=== PATIENT | male | born 1980 | race Caucasian/White ===

== ENCOUNTER 2017-07-10 16:27 | Emergency (ER) | payer BC ==
[2017-07-10 17:32] VITALS: BP 113/78
--- NOTE | 2017-07-10 18:29 | UC ---
Ear Complaint HPI - HPI Summary HPI Summary: c/o right ear discomfort and sensation of pressure and 'being underwater" for past 10 days. He has history of cerumen impaction and he has tried many different modalities to extract it. Denies fever or pain, denies d/c. States that for the past 10 days he his nose has been constantly running when he goes outdoors into the cold. Denies nasal itching, seasonal allergies or cough/ wheezing - History of Current Complaint Chief Complaint: UCEar Stated Complaint: EAR PAIN Time Seen by Provider: 07/10/17 17:49 Hx Obtained From: Patient Onset/Duration: Gradual Onset, Lasting Days Severity Initially: Moderate Severity Currently: Moderate Pain Intensity: 2 Aggravating Factors: Cold Alleviating Factors: Nothing Associated Signs/Symptoms: Positive: Hearing Loss - Allergies/Home Medications Allergies/Adverse Reactions: Allergies Allergy/AdvReac Type Severity Reaction Status Date / Time MS Aspirin [Aspirin] Allergy Unknown Verified 07/10/17 17:32 Reaction Details MS Penicillins [Penicillins] Allergy Unknown Verified 07/10/17 17:32 Reaction Details PMH/Surg Hx/FS Hx/Imm Hx Previously Healthy: Yes - Surgical History Surgical History: None - Family History Known Family History: Positive: None - Social History Alcohol Use: None Substance Use Type: None Substance Use Comment - Amount & Last Used: 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 Smoking Status (MU): Heavy Every Day Tobacco Smoker Type: Cigarettes Amount Used/How Often: 1 pack a day Length of Time of Smoking/Using Tobacco: 16+ years Have You Smoked in the Last Year: Yes Review of Systems Constitutional: Negative ENT: Nasal Discharge All Other Systems Reviewed And Are Negative: Yes Physical Exam Triage Information Reviewed: Yes Appearance: Well-Appearing, No Pain Distress Vital Signs: Initial Vital Signs Temp 97.6 F 07/10/17 17:30 Pulse 59 07/10/17 17:30 Resp 18 07/10/17 17:30 BP 113/78 07/10/17 17:30 Pulse Ox 100 07/10/17 17:30 Vital Signs Reviewed: Yes Eyes: Positive: Conjunctiva Clear ENT: Positive: Pharynx normal, Nasal drainage, TMs normal, Uvula midline Dental Exam: Normal Neck exam: Normal Respiratory Exam: Normal Cardiovascular Exam: Normal Ear Complaint Course/Dx - Course Course Of Treatment: start nasal spray one hour before exposure to cold. Information given about eustachian tube, middle ear effusion, vasomotor rhinitis. - Differential Dx/Diagnosis Provider Diagnoses: vasomotor rhinitis. Middle ear effusion. Eustachian tube dysfunction Discharge - Discharge Plan Condition: Stable Disposition: HOME Prescriptions: Ipratropium Moon 30 ml NS TID #1 spray Patient Education Materials: Postnasal Drip (DC) Referrals: No Primary Care Phys,NOPCP [Primary Care Provider] - [facility] [place] [facility]ERR[facility] [Outside]
== END 2017-07-10 18:26 | disposition home or self-care (01) ==
LOC: UCEAST 16:27
DX: J30.0 Vasomotor rhinitis (principal); H65.91 Unspecified nonsuppurative otitis media, right ear; H72.91 Unspecified perforation of tympanic membrane, right ear; Z88.6 Allergy status to analgesic agent; Z88.0 Allergy status to penicillin; F17.210 Nicotine dependence, cigarettes, uncomplicated
CPT/HCPCS: 99212; G0463

== ENCOUNTER 2017-10-13 15:44 | Emergency (ER) | payer BC ==
[2017-10-13 16:16] VITALS: BP 113/74
--- NOTE | 2017-10-13 16:31 | UC ---
Psychiatric Complaint HPI - HPI Summary HPI Summary: 36 yo male request refill of his lithium his provider is out of [facility] 10/22 He is bipolar and has been on 600mg bid for years has been out of meds for 2 days - History Of Current Complaint Chief Complaint: UCMedRefill Stated Complaint: NEEDS A REFILL Time Seen by Provider: 10/13/17 16:15 Hx Obtained From: Patient Onset/Duration: Other - NA Severity Currently: None Aggravating Factor(s): Nothing Alleviating Factor(s): Nothing Associated Signs And Symptoms: Negative Related History: Positive For: Prior Psychiatric Issues, Admissions Related To Substance Abuse - Allergies/Home Medications Allergies/Adverse Reactions: Allergies Allergy/AdvReac Type Severity Reaction Status Date / Time aspirin Allergy Unknown Unknown Verified 10/13/17 16:08 Reaction Details Penicillins Allergy Unknown Unknown Verified 10/13/17 16:08 Reaction Details Home Medications: Home Medications [place] Carbonate TAB* 600 mg PO DAILY 10/13/17 [History Confirmed 10/13/17] PMH/Surg Hx/FS Hx/Imm Hx Previously Healthy: Yes Psychological History: Bipolar Disorder - Surgical History Surgical History: None - Family History Known Family History: Positive: Hypertension - Social History Alcohol Use: None Substance Use Type: None Substance Use Comment - Amount & Last Used: 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 Smoking Status (MU): Heavy Every Day Tobacco Smoker Type: Cigarettes Amount Used/How Often: 1 pack a day Length of Time of Smoking/Using Tobacco: 16+ years Have You Smoked in the Last Year: Yes Review of Systems Constitutional: Negative Skin: Negative Eyes: Negative ENT: Negative Respiratory: Negative Cardiovascular: Negative Gastrointestinal: Negative Genitourinary: Negative Motor: Negative Neurovascular: Negative Musculoskeletal: Negative Neurological: Negative Psychological: Negative Is Patient Immunocompromised?: No All Other Systems Reviewed And Are Negative: Yes Physical Exam Triage Information Reviewed: Yes Appearance: Well-Appearing, No Pain Distress, Well-Nourished Vital Signs: Initial Vital Signs Temp 97.7 F 10/13/17 16:10 Pulse 57 10/13/17 16:10 Resp 17 10/13/17 16:10 BP 113/74 10/13/17 16:10 Pulse Ox 100 10/13/17 16:10 Vital Signs Reviewed: Yes Eyes: Positive: Conjunctiva Clear ENT: Positive: Hearing grossly normal. Negative: Nasal congestion, Nasal drainage, Trismus, Muffled voice, Hoarse voice Neck: Positive: Supple, Nontender, No Lymphadenopathy Respiratory: Positive: Lungs clear, Normal breath sounds, No respiratory distress, No accessory muscle use Cardiovascular: Positive: RRR, No Murmur Musculoskeletal: Positive: ROM Intact, No Edema Neurological: Positive: Alert, Muscle Tone Normal Psychological Exam: Normal - no SI/HI Skin Exam: Normal Psych Complaint Course/Dx - Differential Dx/Diagnosis Provider Diagnoses: bipolar disorder. med refill Discharge - Sign-Out/Discharge Documenting (check all that apply): Discharge/Admit/Transfer - Discharge Plan Condition: Stable Disposition: HOME Prescriptions: [place] Carbonate [[place] Carbonate 600 mg cap] 600 mg PO BID #20 capsule Referrals: No Primary Care Phys,NOPCP [Primary Care Provider] - Additional Instructions: med refill see your provider when able - Billing Disposition and Condition Condition: STABLE Disposition: HOME
== END 2017-10-13 16:29 | disposition home or self-care (01) ==
LOC: UCCORT 15:44
DX: F31.9 Bipolar disorder, unspecified (principal); F17.210 Nicotine dependence, cigarettes, uncomplicated; Z88.0 Allergy status to penicillin; Z88.6 Allergy status to analgesic agent
CPT/HCPCS: 99212; G0463

== ENCOUNTER 2017-12-07 19:32 | Emergency (ER) | payer BC ==
[2017-12-07 19:41] VITALS: BP 129/61
--- NOTE | 2017-12-07 20:20 | UC ---
Ernestina Swan Jacob, scribed for Jenae Keys MD on 12/07/17 at 1958 . General HPI - HPI Summary HPI Summary: Pt is a 37 y/o M w/ c/o blood from left ear. He notes bleeding started in the morning and he woke up with blood present on his pillow. He had three episodes of bleeding throughout the day. After the first episode in the morning, he began to bleed again at noon. The final episode occurred while Pt was running at the gym an hour ago. He reports that the amount of blood produced was enough to fill the cup of his headphones. Pt denies experiencing any pain today or yesterday. He additionally denies dental pain, sinus pain, and any vision changes. However, he is legally blind in one eye. He reports chronic HAs but notes no difference from previous HAs. No anticoagulants. He does not use Q- tips and states he gets his ears cleaned by a doctor occasionally. Pts medications reviewed this visit - History of Current Complaint Chief Complaint: UCEar Stated Complaint: BLOOD COMING OUT OF LEFT EAR Time Seen by Provider: 12/07/17 19:39 Hx Obtained From: Patient Onset/Duration: Lasting Hours - onset this morning Timing: Intermittent Episodes Lasting: - 3 separate episodes Current Severity: None - denies pain Pain Intensity: 0 Associated Signs & Symptoms: Positive: Headache - has chronic HAs, but notes no difference from previous HAs, Other - NEGATIVE: dental, ear, sinus pain, vision changes - Allergy/Home Medications Allergies/Adverse Reactions: Allergies Allergy/AdvReac Type Severity Reaction Status Date / Time aspirin Allergy Unknown Unknown Verified 10/13/17 16:08 Reaction Details Penicillins Allergy Unknown Unknown Verified 10/13/17 16:08 Reaction Details PMH/Surg Hx/FS Hx/Imm Hx Previously Healthy: Yes Respiratory History: Pneumonia Psychological History: Bipolar Disorder - Surgical History Surgical History: None - Family History Known Family History: Positive: Hypertension - mother, Diabetes - mother - Social History Occupation: Employed Full-time Lives: With Family Alcohol Use: None Substance Use Type: None Substance Use Comment - Amount & Last Used: 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 Smoking Status (MU): Heavy Every Day Tobacco Smoker Type: Cigarettes Amount Used/How Often: 1 pack a day Length of Time of Smoking/Using Tobacco: 16+ years Have You Smoked in the Last Year: Yes Review of Systems Constitutional: Negative ENT: Other - POSITIVE: left ear bleeding NEGATIVE: sinus pain, dental pain, ear pain Neurological: Other - POSITIVE: HAs which have been chronic and unchanged after ear bleeding onset NEGATIVE: vision changes All Other Systems Reviewed And Are Negative: Yes Physical Exam - Summary Physical Exam Summary: Vital Signs Reviewed: Yes A+Ox3, no distress Eyes: Conjunctiva Clear, HUSSAIN, EOM intact and full ENT: Hearing grossly normal TM x2 clear visualized, intact, normal appearance Pt with cerumen left canal -e asily removed with currette. Pt with small, scabbed lesion to left outer ear just above tragus. cleaned dried blood from outer ear, pinna - scab remained. Suspect origin of blood. No blood in nares. No blood oropharyx neck: supple Respiratory: Positive: No respiratory distress, No accessory muscle use Cardiovascular: skin color reflect adequate perfusion Musculoskeletal Exam: GEORGE x 4 without difficulty Neurological: Positive: Alert, ambulatory without difficulty Psychological: Positive: Normal Response To Family Skin: Positive: no rash, no ecchymosis abraison left ear Triage Information Reviewed: Yes Vital Signs: Initial Vital Signs Temp 97.7 F 12/07/17 19:35 Pulse 62 12/07/17 19:35 Resp 16 12/07/17 19:35 BP 129/61 12/07/17 19:35 Pulse Ox 100 12/07/17 19:35 Eye Exam: Normal ENT Exam: Normal Dental Exam: Normal Neck exam: Normal Neck: Positive: 1 Respiratory Exam: Normal Cardiovascular Exam: Normal Abdominal Exam: Normal Musculoskeletal Exam: Normal Neurological Exam: Normal Psychological Exam: Normal Skin Exam: Normal Course/Dx - Course Course Of Treatment: Patient presents with 3 episodes of blood appearing to come from his left ear. Upon exam and cleaning blood and scabs, patient with small abrasion left ear. Suspect this with origin of blood. Catheterization of both canals as well as TMs after remove cerumen fourth curette. Clean dry intact and within normal limits. Patient comfortable and agreeable with plan. Recommend patient use antibiotic ointment to keep moist and prevent scab from peeling. Patient comfortable and agreeable with plan. I Randall patient Cisco to look at wound. Patient states understanding and agreement - Differential Dx - Multi-Symptom Provider Diagnoses: abraison Discharge - Sign-Out/Discharge Documenting (check all that apply): Discharge/Admit/Transfer - Discharge Plan Condition: Stable Disposition: HOME Patient Education Materials: Abrasion (ED) Referrals: No Primary Care Phys,NOPCP [Primary Care Provider] - Additional Instructions: - you have a small, scabbed wound on the outside if your ear. The doctor that examined you thinks this is the cause of the blood when you were exercises and on your pillow. You ear canal and ear drum looks normal and healthy. - It is recommended you cover this wound with a thin layer of antibiotic ointment (neosporin, polysporin) 2-3 times a day - it is starts to bleed, hold steady pressure to this area for 10 minutes. Contact your doctor, return here or go to the emergency department with any questions or concerns - Billing Disposition and Condition Condition: STABLE Disposition: Home The documentation as recorded by the Ernestina albert Jacob accurately reflects the service I personally performed and the decisions made by me, Jenae Keys MD.
== END 2017-12-07 20:15 | disposition home or self-care (01) ==
LOC: UCEAST 19:32
DX: S00.412A Abrasion of left ear, initial encounter (principal); F31.9 Bipolar disorder, unspecified; H54.10 Blindness, one eye, low vision other eye, unspecified eyes; H61.22 Impacted cerumen, left ear; R51 Headache; F17.210 Nicotine dependence, cigarettes, uncomplicated; Z88.0 Allergy status to penicillin; Z88.6 Allergy status to analgesic agent; X58.XXXA Exposure to other specified factors, initial encounter; Y92.9 Unspecified place or not applicable
CPT/HCPCS: 99211; G0463

== ENCOUNTER 2018-05-07 18:03 | Emergency (ER) | payer BC ==
[2018-05-07 18:15] VITALS: BP 136/84
--- NOTE | 2018-05-07 18:31 | UC ---
Respiratory Complaint HPI - HPI Summary HPI Summary: 37 year old male with no significant pmhx here with complaint of cough. Reports cough over over 10 days, productive with brown phlegm. He denies fever, chills, cp or sob. Also reports right sided decreased hearing for the past few days. He tried to clean the wax with OTC drops but no alleviation in his symptoms. Patient active smoker. - History of Current Complaint Chief Complaint: UCRespiratory Stated Complaint: URI Time Seen by Provider: 05/07/18 18:25 Timing: Constant Severity Currently: Mild Pain Intensity: 3 Character: Cough: Productive Aggravating Factors: Nothing Alleviating Factors: Nothing Associated Signs And Symptoms: Negative: Fever, Chills, Pleuritic Chest Pain, Hemoptysis, URI, Nasal Congestion, Hoarseness - Allergies/Home Medications Allergies/Adverse Reactions: Allergies Allergy/AdvReac Type Severity Reaction Status Date / Time aspirin Allergy Unknown Unknown Verified 05/07/18 18:15 Reaction Details Penicillins Allergy Unknown Unknown Verified 05/07/18 18:15 Reaction Details PMH/Surg Hx/FS Hx/Imm Hx - Surgical History Surgical History: None - Family History Known Family History: Positive: Hypertension - mother, Diabetes - mother - Social History Alcohol Use: None Alcohol Amount: IN RECOVERY SINCE 2011 Substance Use Type: None Substance Use Comment - Amount & Last Used: IN RECOVERY SINCE 2011 Smoking Status (MU): Current Every Day Smoker Type: Cigarettes Amount Used/How Often: 1/2 PPD Length of Time of Smoking/Using Tobacco: 16+ years Have You Smoked in the Last Year: Yes Review of Systems All Other Systems Reviewed And Are Negative: Yes Constitutional: Positive: Negative Skin: Positive: Negative Eyes: Positive: Negative ENT: Positive: Negative Respiratory: Positive: Cough Cardiovascular: Positive: Negative Gastrointestinal: Positive: Negative Genitourinary: Positive: Negative Motor: Positive: Negative Neurovascular: Positive: Negative Musculoskeletal: Positive: Negative Neurological: Positive: Negative Psychological: Positive: Negative Is Patient Immunocompromised?: Yes Physical Exam Triage Information Reviewed: Yes Vital Signs: Initial Vital Signs Temp 36.4 C 05/07/18 18:11 Pulse 68 05/07/18 18:11 Resp 16 05/07/18 18:11 BP 136/84 05/07/18 18:11 Pulse Ox 100 05/07/18 18:11 Eye Exam: Normal ENT: Positive: Nasal congestion, Nasal drainage, Uvula midline, Other - bilateral ear cerumen impaction. Negative: Tonsillar swelling, Tonsillar exudate, Trismus, Muffled voice, Sinus tenderness Respiratory Exam: Normal Cardiovascular Exam: Normal Abdominal Exam: Normal Musculoskeletal Exam: Normal Neurological Exam: Normal Skin Exam: Normal UC Diagnostic Evaluation - Laboratory O2 Sat by Pulse Oximetry: 100 Respiratory Course/Dx - Course Course Of Treatment: Cerumen impaction: bilateral irrigation. Cough: Bronchitis , instructed patient to stop smoking. Tony sent to pharmacy - Differential Dx/Diagnosis Differential Diagnosis/HQI/PQRI: Bronchitis, Sinusitis Provider Diagnosis: Bronchitis, Cerumen impaction Discharge - Sign-Out/Discharge Documenting (check all that apply): Patient Departure All imaging exams completed and their final reports reviewed: Yes - Discharge Plan Condition: Good Disposition: HOME Prescriptions: Azithromycin TAB* [Zithromax TAB (Z-FRANKI) 250 mg #6 tabs] 2 tab PO .TODAY, THEN 1 DAILY #1 franki Patient Education Materials: Acute Bronchitis (ED), How to Stop Smoking (ED) Referrals: No Primary Care Phys,NOPCP [Primary Care Provider] - Additional Instructions: Stop smoking to improve your symptoms - Billing Disposition and Condition Condition: GOOD Disposition: Home
== END 2018-05-07 19:15 | disposition home or self-care (01) ==
LOC: UCEAST 18:03
DX: J40 Bronchitis, not specified as acute or chronic (principal); H61.23 Impacted cerumen, bilateral; Z88.6 Allergy status to analgesic agent; Z88.0 Allergy status to penicillin; F17.210 Nicotine dependence, cigarettes, uncomplicated
CPT/HCPCS: 69210; 99212; G0463

== ENCOUNTER 2019-08-13 08:58 | Emergency (ER) | payer BC ==
[2019-08-13 09:26] VITALS: BP 113/60
--- NOTE | 2019-08-13 09:47 | UC ---
Skin Complaint HPI - HPI Summary HPI Summary: Patient is 38 year old gentleman, who present today to the urgent care with right hand bug bite and pain for past 1 week. Reports questionable bug bite on R 3rd digit that happened about 1 week ago. Now has swelling and redness moving up the hand that started 2-3 days ago. States had a fever yesterday , MAXIMUM TEMPERATURE at 101F. Took Tylenol. He works in a warehouse. Denies any chest pain or shortness of breath . Denies any abdominal pain , nausea or vomiting , diarrhea or constipation. - History of Current Complaint Chief Complaint: UCSkin Time Seen by Provider: 08/13/19 09:29 Stated Complaint: R HAND COMPLAINT Hx Obtained From: Patient Pain Intensity: 4 - Allergy/Home Medications Allergies/Adverse Reactions: Allergies Allergy/AdvReac Type Severity Reaction Status Date / Time aspirin Allergy Unknown Unknown Verified 08/13/19 09:20 Reaction Details Penicillins Allergy Unknown Unknown Verified 08/13/19 09:20 Reaction Details Home Medications: Home Medications Acetaminophen [Acetaminophen Extra Strength] 1,000 mg PO ONCE 08/13/19 [History Confirmed 08/13/19] Sulfamethox/Trimethoprim DS* [Bactrim DS 800/160 TAB*] 1 tab PO BID 10 Days #20 tab 08/13/19 [Rx] PMH/Surg Hx/FS Hx/Imm Hx - Additional Past Medical History Additional PMH: Past Medical History : Substance use disorder None Past Surgical History: No Past History of Procedure Family History : Negative for any dermatological problems. Social History : no alcohol, daily smoker, no drug use. Previously Healthy: Yes - Surgical History Surgical History: None - Family History Known Family History: Positive: Hypertension - mother, Diabetes - mother, Other - No dermatological disorder, Non-Contributory - Social History Alcohol Use: None Alcohol Amount: IN RECOVERY SINCE 2011 Substance Use Type: None Substance Use Comment - Amount & Last Used: IN RECOVERY SINCE 2011 Smoking Status (MU): Current Every Day Smoker Type: Cigarettes Amount Used/How Often: 1/2 PPD Length of Time of Smoking/Using Tobacco: 16+ years Have You Smoked in the Last Year: Yes Review of Systems All Other Systems Reviewed And Are Negative: Yes Constitutional: Positive: Fever Skin: Positive: Rash Eyes: Positive: Negative ENT: Positive: Negative Respiratory: Positive: Negative Cardiovascular: Positive: Negative Gastrointestinal: Positive: Negative Genitourinary: Positive: Negative Motor: Positive: Negative Neurovascular: Positive: Negative Musculoskeletal: Positive: Negative Neurological/Mental Status: Positive: Negative Psychological: Positive: Negative Is Patient Immunocompromised?: No Physical Exam - Summary Physical Exam Summary: Vital Signs Reviewed: Yes A+Ox3, no distress Eyes: Conjunctiva Clear ENT: Hearing grossly normal neck: supple Respiratory: Positive: No respiratory distress, No accessory muscle use Cardiovascular: skin color reflect adequate perfusion Musculoskeletal Exam: GEORGE x 4 without difficulty Neurological: Positive: Alert, ambulatory without difficulty Psychological: Positive: Normal Response To Family Skin: Right hand:: Circular measuring about 1 cm central eschar with surrounding fibrotic skin noted at the proximal phalanx of the third digit dorsally. Close to it is a small 2 mm sized erythematous nodule. Slightly distal and proximal to it is swelling and erythema extending all the way to the wrist on the dorsal aspect. There is swelling and tenderness to palpation of the third MCP joint along with limited and painful range of motion at that joint. Triage Information Reviewed: Yes Vital Signs: Initial Vital Signs Temp 97.7 F 08/13/19 09:21 Pulse 64 08/13/19 09:21 Resp 16 08/13/19 09:21 BP 113/60 08/13/19 09:21 Pulse Ox 99 08/13/19 09:21 Vital Signs Reviewed: Yes Course/Dx - Course Course Of Treatment: We discussed his symptoms which are consistent with bug bite related cellulitis. Given tenderness and limited range of motion and swelling at the third MCP joint possibility of septic joint cannot be completely ruled out given his history of fever yesterday. Patient needs additional testing, thus ER transfer advised and patient agrees. Report called to the ER provider() at [facility], advised provider of the history, physical examination, and duration of illness so far and the need for definitive management. He will go to the ER in a private car. - Diagnoses Provider Diagnosis: Cellulitis, Septic joint of right hand Discharge ED - Sign-Out/Discharge Documenting (check all that apply): Patient Departure All imaging exams completed and their final reports reviewed: No Studies - Discharge Plan Condition: Stable Disposition: HOME-RECOMMEND TO ED Prescriptions: Sulfamethox/Trimethoprim DS* [Bactrim DS 800/160 TAB*] 1 tab PO BID 10 Days #20 tab Patient Education Materials: Cellulitis (ED) Forms: *Work Release Referrals: Aidan Juárez MD [Medical Doctor] - 2 Days Garcia Ramirez MD [Medical Doctor] - 2 Days No Primary Care Phys,NOPCP [Primary Care Provider] - Additional Instructions: Please go to ER for further evaluation . Pain control with ibuprofen Work note provided. Return to Urgent care / ER if symptoms get worse. - Billing Disposition and Condition Condition: STABLE Disposition: Home-Recommend to ED
== END 2019-08-13 10:12 | disposition home health service (06) ==
LOC: UCEAST 08:58
DX: L03.011 Cellulitis of right finger (principal); M00.9 Pyogenic arthritis, unspecified; F17.210 Nicotine dependence, cigarettes, uncomplicated; Z88.0 Allergy status to penicillin; Z88.6 Allergy status to analgesic agent
CPT/HCPCS: 99212; G0463

== ENCOUNTER 2019-08-13 10:29 | Emergency (ER) | payer BC ==
[2019-08-13] MEDS ORDERED: cefTRIAXone(*) 2 GM in NS 0.9% 50 ML* 50 ML IVPB ONE (11:03)
--- NOTE | 2019-08-13 11:03 | ED ---
Upper Extremity Pain - HPI Summary HPI Summary: This patient is a 38 year old M presenting to ED with a chief complaint of worsening bug bite to the right middle finger since three days ago. 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 Patient states he developed redness and pain to the area which as spread with red streaking and pain up the right arm. Patient has not taken any antibiotics or medication. Patient was previously given a prescription for Bactrim but he never filled it. The patient rates the pain 4/10 in severity. Symptoms aggravated by nothing. Symptoms alleviated by nothing. Patient denies fever. Home Medications Medication Instructions Recorded Confirmed Type Acetaminophen [Acetaminophen Extra 1,000 mg PO ONCE 08/13/19 08/13/19 History Strength] Sulfamethox/Trimethoprim DS* 1 tab PO BID 10 Days #20 tab 08/13/19 Rx [Bactrim DS 800/160 TAB*] - History of Current Complaint Chief Complaint: EDRashSkinAbscess Stated Complaint: POSS CELLULITES PER PT Time Seen by Provider: 08/13/19 10:56 Hx Obtained From: Patient Mechanism Of Injury: Other - Bug bite Onset/Duration: Started Days Ago - 3 days, Still Present, Worse Since Timing: Constant Severity Initially: Moderate Severity Currently: Moderate Pain Location: Finger - Right middle Aggravating Factor(s): Nothing Alleviating Factor(s): Nothing Associated Signs & Symptoms: Positive: Redness. Negative: Fever - Allergies/Home Medications Allergies/Adverse Reactions: Allergies Allergy/AdvReac Type Severity Reaction Status Date / Time aspirin Allergy Unknown Unknown Verified 08/13/19 10:33 Reaction Details Penicillins Allergy Unknown Unknown Verified 08/13/19 10:33 Reaction Details Home Medications: Home Medications Acetaminophen [Acetaminophen Extra Strength] 1,000 mg PO ONCE 08/13/19 [History Confirmed 08/13/19] Sulfamethox/Trimethoprim DS* [Bactrim DS 800/160 TAB*] 1 tab PO BID 10 Days #20 tab 08/13/19 [Rx Confirmed 08/13/19] PMH/Surg Hx/FS Hx/Imm Hx Endocrine/Hematology History: Denies: Hx Diabetes Cardiovascular History: Denies: Hx Hypertension Sensory History: Denies: Hx Legally Blind, Hx Deafness Opthamlomology History: Denies: Hx Legally Blind EENT History: Denies: Hx Deafness - Surgical History Surgery Procedure, Year, and Place: Denies Infectious Disease History: No Infectious Disease History: Denies: Hx Clostridium Difficile, Hx Hepatitis, Hx Human Immunodeficiency Virus (HIV), Hx of Known/Suspected MRSA, Hx Shingles, Hx Tuberculosis, Hx Known/ Suspected VRE, Hx Known/Suspected VRSA, History Other Infectious Disease, Traveled Outside the [place] in Last 30 Days - Family History Known Family History: Positive: Hypertension - mother, Diabetes - mother, Other - No dermatological disorder - Social History Alcohol Use: None Alcohol Amount: IN RECOVERY SINCE 2011 Hx Substance Use: Yes Substance Use Type: Reports: Heroin Substance Use Comment - Amount & Last Used: IN RECOVERY SINCE 2011. Stopped suboxone 12/2018 Hx Tobacco Use: Yes Smoking Status (MU): Current Every Day Smoker Type: Cigarettes Amount Used/How Often: 1/2 PPD Length of Time of Smoking/Using Tobacco: 16+ years Have You Smoked in the Last Year: Yes Review of Systems Negative: Fever Skin: Other - Bug bite with redness to right middle finger, growing up the right arm with pain All Other Systems Reviewed And Are Negative: Yes Physical Exam - Summary Physical Exam Summary: VITAL SIGNS: Reviewed. GENERAL: Patient is a well-developed and nourished male who is lying comfortable in the stretcher. Patient is not in any acute respiratory distress. HEAD AND FACE: No signs of trauma. No ecchymosis, hematomas or skull depressions. No sinus tenderness. EYES: PERRLA, EOMI x 2, No injected conjunctiva, no nystagmus. EARS: Hearing grossly intact. Ear canals and tympanic membranes are within normal limits. MOUTH: Oropharynx within normal limits. NECK: Supple, trachea is midline, no adenopathy, no JVD, no carotid bruit, no c- spine tenderness, neck with full ROM. CHEST: Symmetric, no tenderness at palpation. LUNGS: Clear to auscultation bilaterally. No wheezing or crackles. CVS: Regular rate and rhythm, S1 and S2 present, no murmurs or gallops appreciated. ABDOMEN: Soft, non-tender. No signs of distention. No rebound, no guarding, and no masses palpated. Bowel sounds are normal. EXTREMITIES: Two necrotic spots to the dorsal aspect of the right middle finger with some erythema. NEURO: Alert and oriented x 3. No acute neurological deficits. Speech is normal and follows commands. SKIN: Dry and warm. Triage Information Reviewed: Yes Vital Signs On Initial Exam: Initial Vitals Temp Pulse Resp BP Pulse Ox 97.8 F 57 16 130/72 98 08/13/19 10:31 08/13/19 10:31 08/13/19 10:31 08/13/19 10:31 08/13/19 10:31 Vital Signs Reviewed: Yes Procedures - Sedation Patient Received Moderate/Deep Sedation with Procedure: No Diagnostics - Vital Signs Vital Signs Temp Pulse Resp BP Pulse Ox 08/13/19 10:31 97.8 F 57 16 130/72 98 - Laboratory Result Diagrams: 08/13/19 11:30 08/13/19 11:30 Lab Statement: Any lab studies that have been ordered have been reviewed, and results considered in the medical decision making process. - Radiology R hand XR Radiology Interpretation Completed By: Radiologist Summary of Radiographic Findings: GENERALIZED SOFT TISSUE SWELLING WITH NO OSSEOUS ABNORMALITY BY RADIOGRAPH. Dr. Jaramillo has reviewed this radiology report. Re-Evaluation - Re-Evaluation First Eval Re-Evaluation Time: 12:41 Comment: Discussed results and follow-up plan with patient. Patient will be discharged home with dx of cellulitus of hand. Patient understands and agrees with this plan. Course/Dx - Course Assessment/Plan: This patient is a 38 year old M presenting to ED with a chief complaint of worsening bug bite to the right middle finger since three days ago. 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 Patient states he developed redness and pain to the area which as spread with red streaking and pain up the right arm. Patient has not taken any antibiotics or medication. The patient rates the pain 4/10 in severity. Symptoms aggravated by nothing. Symptoms alleviated by nothing. Patient denies fever. In the ED course the patient was placed in a cardiac cath technologist, IV access was obtained, IV fluids started. He was given Rocephin for Cellulitis. Past medical records reviewed. Blood test w/o a significant abnormality except for hematocrit of 41, glucose 122, CRP is normal and white count is also normal. Dr. Marsh from orthopedics came and saw the patient and he recommends IV antibiotics and discharged home with by mouth antibiotics. He also recommends to follow up with his office in the next 3 days. Patient and agrees with the plan. Plan of care was discussed with the patient and understands and agrees. All questions were answered at patient satisfaction. There were no further complaints or concerns. Lung exam before discharge: CTA B/L. Good air exchange. No wheezing or crackles heard. CVS : S1 and S2 present. No murmurs appreciated. Patient is alert and oriented x 3. Patient is hemodynamically stable. Patient will be discharged home with follow up Orthopedics in the next 3 days - Diagnoses Differential Diagnosis/HQI/PQRI: Positive: Bursitis, Contusion, Osteomyelitis, Septic Arthritis, Other - Tenosynovitis Provider Diagnoses: Cellulitis of hand - Physician Notifications Discussed Care of Patient With: Garcia Marsh Time Discussed With Above Provider: 11:15 Instructed by Provider To: Have Pt Call For Appt. - Discussed patient case with eulalia Maddox, who evaluated the patient and recommended outpatient antibiotics, warm soapy soaks 3x a day, and follow-up with the hand team. Discharge ED - Sign-Out/Discharge Documenting (check all that apply): Patient Departure - Discharge - Discharge Plan Condition: Stable Disposition: HOME Patient Education Materials: Cellulitis (ED) Referrals: Garcia Marsh MD [Medical Doctor] - 3 Days [facility] [Outside] - 3 Days Additional Instructions: Please call Dr. Marsh's office and schedule an appointment with the hands team for some time next week. Please continue with the oral antibiotics and use warm , soapy soaks for 15 minutes 3x a day. PLEASE RETURN TO THE ER FOR ANY WORSENING OR CONCERNING SYMPTOMS. - Billing Disposition and Condition Condition: STABLE Disposition: Home - Attestation Statements Document Initiated by Smithae: Yes Documenting Scribe: Drik Ventura Provider For Whom Fritz is Documenting (Include Credential): Dave Jaramillo MD Scribe Attestation: Dirk Swan, scribed for Dave Jaramillo MD on 08/14/19 at 0715. Scribe Documentation Reviewed: Yes Provider Attestation: The documentation as recorded by the Dirk albert accurately reflects the service I personally performed and the decisions made by me, Dave Jaramillo MD Status of Scribe Document: Viewed
[2019-08-13 11:52] LABS: ABS Basophils 0.1 10^3/ul (0-0.2); ABS Eosinophils 0.3 10^3/ul (0-0.6); ABS Lymphocytes 2.9 10^3/ul (1.0-4.8); ABS Monocytes 0.4 10^3/ul (0-0.8); ABS Neutrophils 4.6 10^3/ul (1.5-7.7); Eosinophil % 3.7 %; Hematocrit 41 % (42-52); Hemoglobin 14.1 g/dL (14.0-18.0); Lymphocyte % 34.9 %; Mean Corpuscular HGB Conc 35 g/dL (31-36); Mean Corpuscular Hemoglobin 33 pg (27-31); Mean Corpuscular Volume 96 fL (80-94); Mean Platelet Volume 7.5 fL (7.4-10.4); Platelet Count 220 10^3/uL (150-450); Red Blood Count 4.28 10^6 /uL (4.18-5.48); Red Cell Distribution Width 13 % (10-15); White Blood Count 8.3 10^3/uL (3.5-10.8)
[2019-08-13 12:09] LABS: Albumin 4.4 g/dL (3.2-5.2); BUN/Creatinine Ratio 23.5 (8-20); C Reactive Protein 2.28 mg/L (<8.01); Calcium 9.4 mg/dL (8.6-10.3); EGFR African American 120.8 (>60); EGFR Non-African American 99.8 (>60); Globulin 2.2 g/dL (2-4); Potassium 4.1 mmol/L (3.5-5.0); Total Bilirubin 0.2 mg/dL (0.2-1.0); Total Protein 6.6 g/dL (6.4-8.9)
[2019-08-13 12:47] VITALS: BP 114/69
[2019-08-13 12:55] LABS: Erythrocyte Sed Rate 3 mm/Hr (0-14)
== END 2019-08-13 12:46 | disposition home or self-care (01) ==
LOC: ED 10:29
DX: L03.113 Cellulitis of right upper limb (principal); F17.210 Nicotine dependence, cigarettes, uncomplicated; Z88.0 Allergy status to penicillin; Z88.6 Allergy status to analgesic agent
CPT/HCPCS: 36415; 80053; 83605; 85025; 85652; 86140; 96365; 99282; J0696